=== PATIENT | female | born 1960 | race Two or more races ===

== ENCOUNTER 2019-12-21 21:09 | Emergency (ER) | payer MEDICAID ==
[~2019-12-21] VITALS: Ht 154.9 cm; Wt 99.8 kg
[~2019-12-21 21:09] MED LIST: IBUPROFEN600 MG ORAL; NKM; NORCO 5-325 TA1 EACH ORAL; NORCO 5/3251 TAB ORAL; VIBRAMYCIN100 MG ORAL; ZOFRAN8 MG ORAL
[2019-12-21] MEDS ORDERED: HYDROcodone/Acetamin 7.5/325 tab ORAL ONE (22:15)
--- NOTE | 2019-12-21 22:17 | NUR ---
ED Nurse Note: Pt wheeled in to ED from home c/o 08/20 pain in L ankle since fall 2 hrs ago, VSS, unable to ambulate , visible swelling noted
[2019-12-21] MEDS ORDERED: Tetanus/Diptheria/Pertussis IM ONE (22:45)
--- NOTE | 2019-12-21 22:47 | Emergency Room Report ---
History of Present Illness General Chief Complaint: Lower Extremity Injury Source: Patient Present Illness HPI Disclaimer: Please note that this report is being documented using DRAGON technology. This can lead to erroneous entry secondary to incorrect interpretation by the dictating instrument. HPI: 59-year-old female presents for left ankle pain after a fall. She was taken the garbage cans out and accidentally stepped on uneven surface falling forward. The cans did not fall on her. There is no head injury or loss of consciousness. No immediate pain and swelling over the lateral aspect of the left ankle. Unable to bear weight. Brought in by her family. Denies any numbness or tingling. Can still move her toes. Difficulty with flexion and extension at the ankle. Also complaining of pain in the calcaneus. No prior history of injury or surgery to the left lower extremity. No skin breakdown or lacerations. PMH: Anxiety, hypertension PSH: Denies Allergies: Denies Social Hx: Denies Allergies: Coded Allergies: No Known Allergies (Unverified , 06/22/13) Patient History Now: No Nursing Documentation-PMH Hx Cardiac Problems: Yes Hx Hypertension: Yes Hx Diabetes: Yes Hx Cancer: No Hx Gastrointestinal Problems: Yes - WAS IN ER FOR SAME S/S 3 DAYS AGO Hx Neurological Problems: No Review of Systems All Other Systems: negative except mentioned in HPI Physical Exam Vital Signs Date Time Temp Pulse Resp B/P (MAP) Pulse Ox O2 Delivery O2 Flow Rate FiO2 12/21/19 21:23 97.5 89 19 145/82 (103) 99 Room Air General: Awake and alert, no acute distress HEENT: NC/AT. EOMI. Resp: Normal work of breathing Skin: Intact. No abrasions, laceration or rash over the exposed skin MSK: Brisk capillary refill in the lower extremity. 2+ PT pulses. No skin breakdown. There is tenderness palpation over the posterior aspect of the lateral malleolus as well as mild edema. Difficulty with plantarflexion and dorsiflexion. Tenderness over the calcaneus without deformity. No tenderness in the knee. Joint is stable otherwise. Mild tenderness in the midfoot region without deformity or overlying edema. Neuro: Awake and alert. Mentating appropriately Procedures Splinting Splinting : Consent: Verbal Hand-Made Type: plaster Splint: Posterior long with sugar tong Pre-Proc Neuro Vasc Exam: normal Post-Proc Neuro Vasc Exam: normal Patient Tolerated: Well Complications: None Medical Decision Making Diagnostic Impression: Primary Impression: Ankle sprain ER Course 59-year-old female presents for evaluation of ankle pain after a fall. Concern for fracture dislocation at this time though strain is also possible. Given the tenderness over the posterior aspect of the lateral malleolus x-ray was ordered which does not show acute fracture or dislocation. Likely a sprain. The patient was splinted for comfort and stability and given crutches. She may follow-up with her PMD next week for reevaluation. Discussed reasons to return to the emergency department. She understands and agrees the treatment plan. Family also updated at bedside Other X-Ray Diagnostic Results Other X-Ray Diagnostic Results #1: X-Ray ordered: Left ankle # of Views/Limited Vs Complete: 3 View Indication: Pain EP Interpretation: Yes Interpretation: no dislocation, no fractures, other - Moderate soft tissue swelling Impression: Other - Soft tissue swelling without obvious fracture or dislocation Electronically Signed by: Electronically signed by Dr. Felix Hastings Other X-Ray Diagnostic Results #2: X-Ray ordered: Left foot # of Views/Limited Vs Complete: 2 View Indication: Pain Interpretation: no dislocation, no fractures Impression: Other - Soft tissue swelling, no obvious fracture Electronically Signed by: Electronically signed by Dr. Felix Hastings Last Vital Signs Date Time Temp Pulse Resp B/P (MAP) Pulse Ox O2 Delivery O2 Flow Rate FiO2 12/21/19 21:23 97.5 89 19 145/82 (103) 99 Room Air Disposition: HOME, SELF-CARE Condition: Stable Scripts Ibuprofen* (MOTRIN*) 600 Mg Tablet 600 MG ORAL Q8H PRN for For Pain, #30 TAB 0 Refills Prov: Felix Hastings MD 12/22/19 Felix Hastings MD Dec 21, 2019 22:47
--- NOTE | 2019-12-21 23:40 | NUR ---
Note laura in EDM - 12/22/19 at 0034 by MADELYNING ER DISCHARGE NOTE: Patient is cleared to be discharged per ERMD, pt is aox4, on room air, with stable vital signs. pt was given dc and prescription instructions, pt was able to verbalize understanding, pt id band removed. pt is able to ambulate with steady gait. pt took all belongings.
--- NOTE | 2019-12-22 | NUR ---
ED Nurse Note: Pt awaiting xray results, daughter at side. Reports lessened pain. will continue to monitor
--- NOTE | 2019-12-22 00:21 | Diagnostic Imaging Report ---
Indication: Pain, fall, injury Technique: 3 views left foot Comparison: None Findings: No acute fractures. No dislocations. The joint spaces are preserved. The bones are osteoporotic. There are small calcaneal and plantar spurs Impression: No acute bony trauma
--- NOTE | 2019-12-22 00:25 | Diagnostic Imaging Report ---
Indication: Reason For Exam: INJ Technique: Continuous helical CT scanning of the head was performed without intravenous contrast material. Axial and coronal 5 mm sections were generated. Radiation dose was minimized using automated exposure control Dose: Total Dose Length Product - DLP [address] Dose Index - CTDIvol(s) 60 mGy. Comparison: Findings: The ventricular system is normal in size and configuration. There is no shift of midline structures. No abnormal extra-axial fluid collections are noted. There is no evidence of intracerebral bleeding. No other abnormal high or low density areas are noted within the brain. 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
[2019-12-22] MEDS ORDERED: IBUPROFEN600 MG ORAL (00:37)
[2019-12-22 01:00] VITALS: BP 145/82
--- NOTE | 2019-12-22 01:00 | NUR ---
ER DISCHARGE NOTE: Patient is cleared to be discharged per ERMD, pt is aox4, on room air, with stable vital signs. pt was given dc and prescription instructions, pt was able to verbalize understanding, pt id band removed. pt is able to ambulate with steady gait. pt took all belongings. Pt stable on crutches
--- NOTE | 2019-12-22 16:34 | Diagnostic Imaging Report ---
Indication: Pain, injury, status post fall Technique: 3 views of the left ankle Comparison: none Findings: Bones are somewhat osteoporotic. There are degenerative changes of the midfoot. There are small plantar and calcaneal spurs. No acute fractures. No dislocations. The joint spaces are preserved Impression: No acute bony trauma
== END 2019-12-22 01:00 | disposition home or self-care (01) ==
LOC: EMR 21:35
DX: S93.402A Sprain of unspecified ligament of left ankle, initial encounter (principal); W01.0XXA Fall on same level from slipping, tripping and stumbling without subsequent striking against object, initial encounter; Y92.9 Unspecified place or not applicable; F41.9 Anxiety disorder, unspecified; I10 Essential (primary) hypertension; E11.9 Type 2 diabetes mellitus without complications; Z23 Encounter for immunization
CPT/HCPCS: 29505; 70450; 73610; 73630; 90471; 90715; Z7502; 99284